=== PATIENT | female | born 1940 | race African-American/Black ===

== ENCOUNTER 2017-09-11 11:22 | Emergency (ER) | payer OTHER, MEDICAID ==
[~2017-09-11] VITALS: Ht 152.4 cm; Wt 70.0 kg
[2017-09-11] MEDS ORDERED: NIFE-1 PO (12:37)
[2017-09-11] MEDS ORDERED: LOSA50TA20 PO (12:37)
[2017-09-11 14:44] VITALS: BP 144/58
== END 2017-09-11 15:13 | disposition left against medical advice (07) ==
LOC: ER 13:20
DX: R05 Cough (principal); R09.3 Abnormal sputum; R50.9 Fever, unspecified; R53.1 Weakness; I10 Essential (primary) hypertension
CPT/HCPCS: 99281